=== PATIENT | female | born 1960 | race Caucasian/White ===

== ENCOUNTER → 2017-01-22 | Outpatient (CLI) | payer OTHER ==
--- NOTE | 2017-01-22 12:08 | REP ---
MRI RIGHT LOWER LEG: Multiple sequences obtained in the axial, sagittal, and coronal planes without the use of intravenous contrast. The tibia and fibula demonstrate normal marrow signal. There is no bone marrow edema or occult fracture. No bone lesion is seen. Soft tissue structures demonstrate no abnormal signal. There is no edema or fluid collection. No definite solid nodule is seen. There is no evidence of a soft tissue cyst. Muscular structures and tendinous structures demonstrates no abnormal signal. There is a small joint effusion at the knee and some mild subchondral cystic changes seen in posterior tibial plateau. IMPRESSION: Small joint effusion at the knee with mild subchondral cystic change posterior tibial plateau. Otherwise negative MRI right lower leg. Signed by Bertin Richard MD 01/22/2017 04:59 P
== END ==
LOC: M PLARAD 09:02
PROVIDERS: ATTEND Orthopaedic Surgery
DX: M79.661 Pain in right lower leg (principal)

== ENCOUNTER → 2020-07-27 | Outpatient (CLI) | payer OTHER ==
[~2020-07-27] MED LIST: MODA200T15 PO; MONT10TA10 PO; ROSU10TA6 PO
== END ==
LOC: M LABSMTC 08:10
PROVIDERS: ATTEND Anesthesiology
DX: Z01.818 Encounter for other preprocedural examination (principal); Z11.52 Encounter for screening for COVID-19

== ENCOUNTER 2020-08-01 06:35 | Day surgery (SDC) | payer OTHER ==
[~2020-08-01] VITALS: Ht 167.6 cm; Wt 84.8 kg
[~2020-08-01 06:35] MED LIST changes: +NS 1,000 ML IV ONE
[2020-08-01] MEDS ORDERED: LIDOCAINE 2% 100MG/5ML SDV (FOR ANES.) As Ordered ONE (07:04)
[2020-08-01] MEDS ORDERED: propofoL 200 MG/20 ML VIAL As Ordered ONE (07:04)
--- NOTE | 2020-08-01 08:14 | ROOR ---
Patient Name: Jessica Rashid Procedure Date: 08/01/2020 7:28 AM Date of : 1960 Age: 60 Room: [facility] Gender: Female Note Status: Finalized Procedure: Colonoscopy Indications: Screening in patient at increased risk: Family history of 1st-degree relative with colorectal cancer Providers: Jimmy Carreno Jr, MD Referring MD: Kathy Jay DO Requesting Provider: Medicines: Propofol per Anesthesia Complications: No immediate complications. Procedure: Pre-Anesthesia Assessment: - Prior to the procedure, a History and Physical was performed, and patient medications and allergies were reviewed. The patient is competent. The risks and benefits of the procedure and the sedation options and risks were discussed with the patient. All questions were answered and informed consent was obtained. Patient identification and proposed procedure were verified by the physician and the nurse in the pre-procedure area and in the procedure room. Mental Status Examination: alert and oriented. Airway Examination: normal oropharyngeal airway and neck mobility. Respiratory Examination: clear to auscultation. CV Examination: normal. ASA Grade Assessment: II - A patient with mild systemic disease. After reviewing the risks and benefits, the patient was deemed in satisfactory condition to undergo the procedure. The anesthesia plan was to use moderate sedation / analgesia (conscious sedation). Immediately prior to administration of medications, the patient was re-assessed for adequacy to receive sedatives. The heart rate, respiratory rate, oxygen saturations, blood pressure, adequacy of pulmonary ventilation, and response to care were monitored throughout the procedure. The physical status of the patient was re-assessed after the procedure. The Colonoscope was introduced through the anus and advanced to the cecum, identified by appendiceal orifice and ileocecal valve. The colonoscopy was performed without difficulty. The patient tolerated the procedure well. The quality of the bowel preparation was adequate. Findings: The rectum, recto-sigmoid colon, descending colon, transverse colon and ascending colon appeared normal. A few small-mouthed diverticula were found in the sigmoid colon. A diminutive polyp was found in the cecum. The polyp was removed with a jumbo cold forceps. Resection and retrieval were complete. A single small localized angioectasia without bleeding was found in the cecum. Impression: - The rectum, recto-sigmoid colon, descending colon, transverse colon and ascending colon are normal. - Diverticulosis in the sigmoid colon. - One diminutive polyp in the cecum, removed with a jumbo cold forceps. Resected and retrieved. - A single non-bleeding colonic angioectasia. Recommendation: - Discharge patient to home (ambulatory). - Repeat colonoscopy in 5 years for screening purposes and for surveillance. Procedure Code(s): --- Professional --- 02744, Colonoscopy, flexible; with biopsy, single or multiple Diagnosis Code(s): --- Professional --- Z80.0, Family history of malignant neoplasm of digestive organs K63.5, Polyp of colon K55.20, Angiodysplasia of colon without hemorrhage K57.30, Diverticulosis of large intestine without perforation or abscess without bleeding CPT copyright 2019 [employer]. All rights reserved. The codes documented in this report are preliminary and upon transformer repairer review may be revised to meet current compliance requirements. Jimmy Carreno MD Jimmy Carreno Jr, MD 08/01/2020 8:14:38 AM Electronically signed by Jimmy Carreno Jr, MD Number of Addenda: 0 Note Initiated On: 08/01/2020 7:28 AM Estimated Blood Loss: Estimated blood loss: none.
[2020-08-01 08:37] VITALS: BP 131/63
== END 2020-08-01 08:52 | disposition home or self-care (01) ==
LOC: M OPP 06:35
PROVIDERS: ATTEND Surgery
DX: Z12.11 Encounter for screening for malignant neoplasm of colon (principal); Z80.0 Family history of malignant neoplasm of digestive organs; K63.5 Polyp of colon; K57.30 Diverticulosis of large intestine without perforation or abscess without bleeding; K55.20 Angiodysplasia of colon without hemorrhage; Z79.899 Other long term (current) drug therapy; Z88.2 Allergy status to sulfonamides

== ENCOUNTER → 2022-11-24 | Outpatient (CLI) | payer OTHER ==
[~2022-11-24] MED LIST changes: -MONT10TA10 PO; +MONT10TA97 PO; -NS 1,000 ML IV ONE
[2022-11-24 09:57] LABS: PLATELET COUNT, AUTOMATED 259 10^3/uL (150-450)
[2022-11-24 10:07] LABS: COLLAGEN EPINEPHRINE 130 SECONDS (74-162)
[2022-11-24 10:11] LABS: PROTHROMBIN TIME 12.9 SECONDS (12.5-14.5)
[2022-11-24 10:12] LABS: PARTIAL THROMBOPLASTIN TIME 29.6 SECONDS (24.8-34.2)
== END ==
LOC: M LAB 08:38
PROVIDERS: ATTEND Physical Medicine & Rehabilitation
DX: Z01.818 Encounter for other preprocedural examination (principal)

== ENCOUNTER → 2023-03-15 | Outpatient (CLI) | payer OTHER | LOC: M WHC 07:03 | PROVIDERS: ATTEND Internal Medicine | DX: R42 Dizziness and giddiness (principal) ==

== ENCOUNTER 2023-06-10 07:16 | Day surgery (SDC) | payer OTHER ==
[~2023-06-10] VITALS: Ht 165.1 cm; Wt 68.5 kg
[~2023-06-10 07:16] MED LIST changes: +CALC500C14 PO; +CVS1CAP2 PO; +CYAN500T14 PO; +LIDOCAINE 2% 100MG/5ML SDV (FOR ANES.) As Ordered ONE; +LORA-243 PO; +MODA100T13 PO; -ROSU10TA6 PO; +ROSU10TA61 PO; +VITA100093 PO; +propofoL 200 MG/20 ML VIAL As Ordered ONE
[2023-06-10] MEDS: NS 1,000 ML IV ONE (07:42)
[2023-06-10 08:59] VITALS: BP 158/72; O2SAT 99
== END 2023-06-10 08:58 | disposition home or self-care (01) ==
LOC: M OPP 07:16
PROVIDERS: ATTEND Surgery
DX: Z12.11 Encounter for screening for malignant neoplasm of colon (principal); Z87.19 Personal history of other diseases of the digestive system; E78.00 Pure hypercholesterolemia, unspecified; Z79.899 Other long term (current) drug therapy; Z88.2 Allergy status to sulfonamides; Z80.0 Family history of malignant neoplasm of digestive organs